=== PATIENT | female | born 1980 | race Caucasian/White ===

== ENCOUNTER 2018-04-07 11:04 | Emergency (ER) | payer BC, MEDICAID | END 2018-04-07 13:53 | disposition home or self-care (01) | LOC: FTE 11:04 | DX: H61.21 Impacted cerumen, right ear (principal); F17.210 Nicotine dependence, cigarettes, uncomplicated | CPT/HCPCS: 69209; 99283-25 ==

== ENCOUNTER 2018-12-07 11:41 | Emergency (ER) | payer BC | END 2018-12-07 13:01 | disposition home or self-care (01) | LOC: FTE 13:01 | DX: R07.89 Other chest pain (principal); Z87.891 Personal history of nicotine dependence | CPT/HCPCS: 71045; 93005; 99284-25 ==

== ENCOUNTER 2018-12-14 15:30 | Emergency (ER) | payer BC ==
[2018-12-14] MEDS: ACETAMINOPHEN 325 MG TAB PO (16:59)
[2018-12-14] MEDS: IPRATROPIUM (NEB) 0.5 MG/2.5 ML AMP HHN (16:59)
== END 2018-12-14 17:28 | disposition home or self-care (01) ==
LOC: FTE 15:30
DX: F41.9 Anxiety disorder, unspecified (principal); F17.210 Nicotine dependence, cigarettes, uncomplicated
CPT/HCPCS: 93005; 94664; 99283-25